=== PATIENT | female | born 1995 | race Caucasian/White ===

== ENCOUNTER 2017-01-13 14:02 | Emergency (ER) | payer BC ==
--- NOTE | 2017-01-13 15:37 | ER Document Report ---
HPI - HPI Patient complains to provider of: STD CHECK Quality of pain: No pain Severity: None Pain Level: Denies Context: Patient has no symptoms, has not been notified by any partner that they have an STD, stating she is just here because she wants to have an STD check. Associated Symptoms: None Exacerbated by: Denies Relieved by: Denies Similar symptoms previously: No Recently seen / treated by doctor: No - ROS ROS below otherwise negative: Yes Systems Reviewed and Negative: Yes All other systems reviewed and negative - CONSTITUTIONAL Constitutional: DENIES: Fever - EENT EENT: DENIES: Congestion - NEURO Neurology: DENIES: Headache - CARDIOVASCULAR Cardiovascular: DENIES: Chest pain - RESPIRATORY Respiratory: DENIES: Trouble Breathing - GASTROINTESTINAL Gastrointestinal: DENIES: Abdominal Pain - URINARY Urinary: DENIES: Dysuria - DERM Skin Color: Normal Skin Problems: None Past Medical History - General Information source: Patient - Social History Smoking Status: Never Smoker Frequency of alcohol use: None Drug Abuse: None Lives with: Family Family History: Reviewed & Not Pertinent Patient has suicidal ideation: No Patient has homicidal ideation: No - Medical History Medical History: Negative Renal/ Medical History: Denies: Hx Peritoneal Dialysis Surgical Hx: Negative - Immunizations Immunizations up to date: Yes Vertical Provider Document - CONSTITUTIONAL Agree With Documented VS: Yes Exam Limitations: No Limitations General Appearance: WD/WN, No Apparent Distress - INFECTION CONTROL TRAVEL OUTSIDE OF THE [place] IN LAST 30 DAYS: No - HEENT HEENT: Atraumatic, Normocephalic - RESPIRATORY Respiratory: Breath Sounds Normal, No Respiratory Distress O2 Sat by Pulse Oximetry: 98 - CARDIOVASCULAR Cardiovascular: Regular Rate, Regular Rhythm - GI/ABDOMEN Gastrointestinal: Abdomen Soft, Abdomen Non-Tender - MUSCULOSKELETAL/EXTREMETIES Musculoskeletal/Extremeties: MAEW, FROM - NEURO Level of Consciousness: Awake, Alert, Appropriate - DERM Integumentary: Warm, Dry Course - Vital Signs Vital signs: Temp Pulse Resp BP Pulse Ox 97.5 F 88 18 119/69 98 01/13/17 14:18 01/13/17 14:18 01/13/17 14:18 01/13/17 14:18 01/13/17 14:18 Discharge - Discharge Clinical Impression: Screen for STD (sexually transmitted disease) Condition: Good Disposition: HOME, SELF-CARE Additional Instructions: CALL BETWEEN 6 AND 6:30PM TODAY AT [phone] FOR RESULTS OF STD TEST HAVE PARTNER USE CONDOMS SEE YOUR PCP FOR FURTHER CONCERNS RETURN NEEDED
[2017-01-13 16:00] VITALS: BP 115/68
[2017-01-13 20:00] LABS: CHLAM PCR DETECTED (NOT DETECT)
[2017-01-13] MEDS ORDERED: LIDOCAINE 1% INJ-PF (10 MG/ML) 30 ML SDV INJ ONE ×2 (20:41→21:47)
[2017-01-13] MEDS ORDERED: CEFTRIAXONE INJ 1000 MG VIAL IM ONE (20:41)
[2017-01-13] MEDS ORDERED: AZITHROMYCIN 250 MG TABLET PO ONE ×2 (20:42→21:47)
[2017-01-13] MEDS ORDERED: CEFTRIAXONE INJ 250 MG VIAL IM ONE (21:47)
--- NOTE | 2017-01-13 21:49 | ER Document Report ---
Doctor's Note Notes: 01/13/17 21:48 Antibiotics needed to be reentered as the first set of antibiotics canceled out before they were given. Same doses reordered only one dose of each given.
== END 2017-01-13 22:10 | disposition home or self-care (01) ==
LOC: ER 14:02
DX: Z11.3 Encounter for screening for infections with a predominantly sexual mode of transmission (principal)
CPT/HCPCS: 99283; 96372; 87491; 87591; J3490; J0696